=== PATIENT | female | born 1965 | race Caucasian/White ===

== ENCOUNTER 2022-06-26 09:06 | Emergency (ER) | payer SELFPAY ==
[2022-06-26] MEDS ORDERED: Ketorolac Tromethamine 60 MG/2 ML VIAL ONE (09:38)
[2022-06-26] MEDS ORDERED: Cyclobenzaprine 10 MG TAB ONE (09:38)
[2022-06-26] MEDS ORDERED: Ketorolac Tromethamine 30 MG/ML VIAL ONE (09:40)
== END 2022-06-26 10:33 | disposition home or self-care (01) ==
LOC: BURERS 09:06
DX: S39.011A Strain of muscle, fascia and tendon of abdomen, initial encounter (principal); X58.XXXA Exposure to other specified factors, initial encounter
CPT/HCPCS: 96372; J1885

== ENCOUNTER 2024-07-09 11:03 | Emergency (ER) | payer OTHER, SELFPAY ==
[2024-07-09] MEDS ORDERED: Fluorescein Opthalmic Strip ONE (11:17)
[2024-07-09] MEDS ORDERED: Tetracaine 0.5% PF 4 ML BOT ONE (11:18)
== END 2024-07-09 12:04 | disposition home or self-care (01) ==
LOC: BURERS 11:03
DX: H40.9 Unspecified glaucoma (principal); H16.002 Unspecified corneal ulcer, left eye; F17.210 Nicotine dependence, cigarettes, uncomplicated
CPT/HCPCS: 99283